=== PATIENT | female | born 1990 | race Asian ===

== ENCOUNTER 2019-10-28 23:54 | Emergency (ER) | payer MEDICAID ==
[~2019-10-28] VITALS: Ht 152.4 cm; Wt 77.3 kg
[2019-10-29] VITALS: BP 136/60
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
== END 2019-10-29 00:50 | disposition home or self-care (01) ==
LOC: ER 23:54
DX: S51.011A Laceration without foreign body of right elbow, initial encounter (principal); S21.211A Laceration without foreign body of right back wall of thorax without penetration into thoracic cavity, initial encounter; S01.01XA Laceration without foreign body of scalp, initial encounter; F10.920 Alcohol use, unspecified with intoxication, uncomplicated; Y90.9 Presence of alcohol in blood, level not specified; W51.XXXA Accidental striking against or bumped into by another person, initial encounter; Y93.89 Activity, other specified; Y92.89 Other specified places as the place of occurrence of the external cause; Y99.8 Other external cause status
CPT/HCPCS: 12001; 99284-25